=== PATIENT | female | born 1995 | race African-American/Black ===

== ENCOUNTER 2025-02-05 21:07 | Emergency (ER) | payer BC, SELFPAY ==
[2025-02-05] VITALS (7 sets, daily range): BP systolic 113–125; BP diastolic 66–105; PULSE 79–88; RESP 16–20; TEMP 36.7; O2SAT 98–100
--- NOTE | ~2025-02-05 | XR_ITS ---
Examination: XR chest 1V portable Clinical History: sob Comparison: None Technique: Portable AP Findings: Heart size normal. Lungs clear. No acute bony abnormality. IMPRESSION: 1. No acute cardiopulmonary findings given portable technique. Reviewed, dictated and finalized at location R. NTOLOGICAL PHYSIOTHERAPIST
--- OUTSIDE RECORDS SUMMARY | 2025-02-05 21:09 | XMS_ITS | Clinical Summary ---
Author Organization [facility] Address [address] [place] [address] Care Team Providers Care Captain Waiter/Waitress Name Role Phone Howie Andrade MD Primary Care Provider [phone] Allergies Active Allergy Reactions Criticality Noted Date Comments Nuts Anaphylaxis High 11/14/2020 Medications VITAMINS 28-0.8 MG tablet Take 1 tablet by mouth daily. 08/21/2023 Active valACYclovir (VALTREX) 500 MG tablet Take 1 tablet (500 mg total) by mouth 2 (two) times daily. 11/06/2023 Active Active Problems Problem Noted Date Diagnosed Date (spontaneous vaginal delivery) 11/19/2023 Nausea and vomiting during 11/11/2023 Comments Yes Resolved Problems Problem Noted Date Diagnosed Date Resolved Date 11/17/2023 11/20/2023 Encounters Date Type Department Care Team Description 11/19/2024 11:14 AM CDT - 11/19/2024 2:04 PM CDT Emergency [facility] [place] [address] Joan Toribio MD Dale, Maurice D, DO Abdominal Pain (7.5 weeks) Discharge Disposition: Left Against Medical Advice 11/19/2024 Travel from Last 3 Months Family History Relation Status Comments Father Alive Mother Alive Social History Tobacco Use Types Packs/Day Years Used Date Smoking Tobacco: Never Smokeless Tobacco: Never Tobacco Cessation:Counseling Given: Not Answered Alcohol Use Standard Drinks/Week Comments Not Currently 0 (1 standard drink = 0.6 oz pur e alcohol) social [id number] Health Literacy Answer Date Recor ded How often do you need to hav e someone help you when you read instructions, pamphlets, or other written material from your doctor or pharmacy? Never 11/17/2023 [facility] Utilities Answer Date Recorded In the past 12 months has th e electric, gas, oil, or water company threatened to shut off services in your home? No 11/17/2023 Humiliation, Afraid, Rape, and Kick questionnair e Answer Date Recorded Within the last year, have y ou been afraid of your partner or ex-partner? No 11/17/2023 Within the last year, have y ou been humiliated or emotionally abused in other ways by your partner or ex-partner? No Within the last year, have y ou been kicked, hit, slapped, or otherwise physically hurt by your partner or ex-partner? No 11/17/2023 Within the last year, have y ou been raped or forced to have any kind of sexual activity by your partner or ex-partner? No 11/17/2023 Social Connection and Isolation Panel Answer Date Recorded In a typical week, how many times do you talk on the phone with family, friends, or neighbors? More than three times a week 11/17/2023 How often do you get togethe r with friends or relatives? Never 11/17/2023 How often do you attend chur or druze services? Never 11/17/2023 Do you belong to any clubs o r organizations such as voodoo groups, unions, fraternal or athletic groups, or school groups? No 11/17/2023 How often do you attend meet ings of the clubs or organizations you belong to? Never 11/17/2023 Are you , , di vorced, , never , or living with a partner? Never 11/17/2023 AUDIT-C Answer Date Recorded Q1: How often do you have a drink containing alcohol? Never 11/17/2023 Q2: How many drinks containi ng alcohol do you have on a typical day when you are drinking? Patient does not drink Q3: How often do you have si x or more drinks on one occasion? Never 11/17/2023 Overall Financial Resource Strain (CARDIA) Answe r Date Recorded How hard is it for you to pa y for the very basics like food, housing, medical care, and heating? Not very hard 11/17/2023 PHQ-2 Answer Date Recorded Patient Health Questionnaire-2 Score 0 11/17/2023 [facility] [place] of Occupat ional Health - Occupational Stress Questionnaire Answer Date Recorded Do you feel stress - tense, restless, nervous, or anxious, or unable to sleep at night because your mind is troubled all the time - these days? To some extent 11/17/2023 Exercise Vital Sign Answer Date Recorde d On average, how many days pe r week do you engage in moderate to strenuous exercise (like a brisk walk)? 0 days 11/17/2023 On average, how many minutes do you engage in exercise at this level? 0 min 11/17/2023 Hunger Vital Sign Answer Date Recorded Within the past 12 months, y ou worried that your food would run out before you got the money to buy more. Never true 11/17/19 24 Within the past 12 months, t he food you bought just didn't last and you didn't have money to get more. Never true 11/17/2023 PRAPARE - Transportation Answer Date Re corded In the past 12 months, has l ack of transportation kept you from medical appointments or from getting medications? No 04/2023 In the past 12 months, has l ack of transportation kept you from meetings, work, or from getting things needed for daily living? No 11/17/2023 Housing Stability Vital Sign Answer Evgeny e Recorded In the last 12 months, was t here a time when you were not able to pay the mortgage or rent on time? No 11/17/2023 In the past 12 months, how m any times have you moved where you were living? 1 11/17/2023 At any time in the past 12 m [facility], were you homeless or living in a fci (including now)? No 11/17/2023 Depression Answer Date Recor ded Last EPDS Total Score 5 11/20/2023 Last EPDS Self Harm Result Unrecognized value Comments Yes Sex and Gender Information Value Date Recorded Sex Assigned at Female 11/19/2024 10:55 AM CDT Legal Sex Female 2:25 PM CDT Gender Identity Not on file Sexual Orientation Not on file Last Filed Vital Signs Vital Sign Reading Time Taken Comments Blood Pressure 119/65 11/19/2024 1:33 PM CDT Pulse 92 11/19/2024 1:33 PM CDT Temperature 36.4 C (97.5 F) 11/19/2024 1:33 PM CDT Respiratory Rate 18 11/19/2024 1:33 PM CDT Oxygen Saturation 98% 11/19/2024 1:33 PM CDT Inhaled Oxygen Concentration - - Weight 99.1 kg (218 lb 7.6 oz) 11/19/2024 10:52 AM CDT Height 172.7 cm (5' 8) 11/19/2024 10:52 AM CDT Body Mass Index 33.22 11/19/2024 10:52 AM CDT Plan of Treatment Health Maintenance Due Date Last Done Comments Annual Physical 10/23/1999 Hepatitis C 2014 Hepatitis B Vaccines (1 of 3 - 19+ 3-dose series) 10/23/2015 HPV Vaccines (1 - 3-dose SCDM series) 10/23/2023 Cervical Cancer Screening Pap Smear (Age 21 to 29) Every 3 Years 10/25/2023 10/24/2020 Cervical Cancer Screening 10/25/2023 COVID-19 Vaccine ( season) 2024 Influenza Adult (#1) 2024 01/30/2017 DTaP, Tdap and Td Vaccines (7 - Td or Tdap) 01/30/2027 01/30/2017, 11/02/2010, 01/16/2001, Additional history exists RSV Immunization or 60+ Years (1 - 1-dose 75+ series) 10/23/2071 Meningococcal Vaccine Completed 10/08/2014 Hepatitis A Vaccines Aged Out No long er eligible based on patient's age to complete this topic Meningococcal B Vaccine Aged Out No l onger eligible based on patient's age to complete this topic Pneumococcal Vaccine: Pediatrics (0 to 5 Years) and At-Risk Patients (6 to 49 Years) Aged Out No longer eligible based on patient's age to complete this topic RSV Immunizations Under 20 Months Aged Out No longer eligible based on patient's age to complete this topic Procedures Procedure Name Priority Date/Time Associated Diagnosis Comments US OB TRANSVAG STAT 11/19/2024 1:17 PM CDT ECG 12-LEAD STAT 11/19/2024 11:37 AM CDT HC URINALYSIS AUTO W/O MICRO STAT 11/19/2024 11:25 AM CDT HC HCG QN STAT 11/19/2024 11:25 AM CDT HC LIPASE STAT 11/19/2024 11:25 AM CDT HC COMPREHENSIVE METABOLIC PANEL STAT 11/19/2024 11:25 AM CDT HC CBC AUTO W/AUTO DIFF STAT 11/19/2024 11:25 AM CDT POCT URINE (BACK OFFICE) STAT 11/19/2024 11:24 AM CDT from Last 3 Months Results * US OB TRANSVAG (11/19/2024 1:17 PM CDT) Anatomical Region Laterality Modality Abdomen, Pelvis Ultrasound 11/19/2024 1:29 PM CDT Impressions 11/19/2024 2:12 PM CDT =====IMPRESSION:===== 1. Single viable intrauterine gestation with positive cardiac activity seen. . Estimated gestational age is 7 weeks 4 days +/- 4 days. with an estimated date of confinement of 07/04/2025. 2. Area of hemorrhage adjacent to gestational sac suspected measuring 2.4 cm. 3. Prominent pelvic vasculature. 4. Nonvisualization the ovaries. Ordered By: JOAN TORIBIO Interpreted By: Chip Elkins MD, 11/19/2024 1:29 PM Narrative 11/19/2024 2:12 PM CDT [facility] [place] [address] EXAMINATION: OB ultrasound with transvaginal imaging EXAM DATE/TIME: 11/19/2024 12:52 PM REASON FOR EXAM: pelvic pain COMPARISON: None TECHNIQUE: Transvaginal ultrasound evaluation of the pelvic contents was performed for analysis of grayscale and color Doppler imaging characteristics. FINDINGS: Single intrauterine gestation is noted. . heart rate is 153 beats per minute. Yolk sac is visualized. mean crown-rump length is 1.34 centimeters. This projects to a gestational age of 7 weeks 4 days +/- 4 days.. Estimated date of confinement is 07/04/2025 . Hemorrhage adjacent to gestational sac suspected. This measures 2.4 x 0.5 x 1.24 cm. The ovaries are not Visualized bilaterally. Prominent vasculature in the pelvis is noted. Procedure Note Chip Elkins MD - 11/19/[address] [address] EXAMINATION: OB ultrasound with transvaginal imaging EXAM DATE/TIME: 11/19/2024 12:52 PM REASON FOR EXAM: pelvic pain COMPARISON: None TECHNIQUE: Transvaginal ultrasound evaluation of the pelvic contents wasperformed for analysis of grayscale and color Doppler imagingcharacteristics. FINDINGS: Single intrauterine gestation is noted. . heart rate is153 beats per minute. Yolk sac is visualized. mean crown-rump length is1.34 centimeters. This projects to a gestational age of 7 weeks 4 days +/-4 days.. Estimated date of confinement is 07/04/2025 . Hemorrhageadjacent to gestational sac suspected. This measures 2.4 x 0.5 x 1.24 cm.The ovaries are not Visualized bilaterally. Prominent vasculature in thepelvis is noted. =====IMPRESSION:===== 1. Single viable intrauterine gestation with positive cardiacactivity seen. . Estimated gestational age is 7 weeks 4 days +/- 4 days.with an estimated date of confinement of 07/04/2025. 2. Area of hemorrhage adjacent to gestational sac suspected measuring 2.4cm. 3. Prominent pelvic vasculature. 4. Nonvisualization the ovaries. Ordered By: JOAN TORIBIO Interpreted By: Chip Elkins MD, 11/19/2024 1:29 PM us Joan Toribio MD ULTRASOUND Final Result * ECG 12 lead (11/19/2024 11:37 AM CDT) 11/19/2024 11:3 7 AM CDT Narrative [facility] ([facility] RAD - 11/19/2024 8:49 PM CDT [facility] Test Date: 2024-11-19 Pat Name: HERMINIO URBINALAN Department: 41 Room: SANTY Gender: Female Clinical Microbiologist: [id number] : 1995 Requested By: LAINE ROPER Order Number: [id number] Reading MD: Sharad Albright Measurements Intervals [employer] Rate: 89 P: 37 DE: 138 QRS: 15 QRSD: 86 T: 27 QT: 349 QTc: 426 Interpretive Statements SINUS RHYTHM MODERATE VOLTAGE CRITERIA FOR LVH, CONSIDER NORMAL VARIANT [MEETS CRITERIA IN ONE OF: R(aVL), S(V1), R(V5), R(V5/V6)+S(V1)] NONSPECIFIC T-WAVE ABNORMALITY No previous ECG available for comparison Procedure Note Sharad Albright MD - 11/19/[address] [facility] [facility] Test Date: 2024-11-19 Pat Name: HERMINIO SCHROEDER Department: 41 Room: SANTY Gender: Female Clinical Microbiologist: [id number] : 1995 Requested By: LAINE ROPER Order Number: [id number] Willie Albright Measurements Intervals [employer] Rate: 89 P: 37 DE: 138 QRS: 15 QRSD: 86 T: 27 QT: 349 QTc: 426 Interpretive Statements SINUS RHYTHM MODERATE VOLTAGE CRITERIA FOR LVH, CONSIDER NORMAL VARIANT [MEETSCRITERIA IN ONE OF: R(aVL), S(V1), R(V5), R(V5/V6)+S(V1)] NONSPECIFIC T-WAVE ABNORMALITY No previous ECG available for comparison us Laine BOYLE ECG ORDERABLES Final Result [facility] RAD * (ABNORMAL) URINALYSIS (11/19/2024 11:25 AM CDT) SPECIMEN TYPE URINE CLEAN CATCH 11/19/2024 11:26 AM CDT [facility] COLOR (U) YELLOW 11/19/2024 11:53 AM CDT [facility] TRANSPARENCY CLEAR 11/19/2024 11:53 AM CDT [facility] SPECIFIC GRAVITY (U) 1.027 1.001 - 1.030 11/19/2024 11:53 AM CDT [facility] U PH 6.0 5.0 - 9.0 11/19/2024 11:53 AM CDT [facility] LEUKOCYTES (U) 75(A) NEGATIVE 11/19/2024 11:53 AM CDT [facility] NITRITES NEGATIVE NEGATIVE 11/19/2024 11:53 AM CDT [facility] PROTEIN RANDOM (U) 10 <30 MG/DL 11/19/2024 11:53 AM CDT [facility] GLUCOSE (U) NORMAL NORMAL MG/DL 11/19/2024 11:53 AM CDT [facility] KETONES MG/DL (U) 20(A) NEGATIVE MG/DL 11/19/2024 11:53 AM CDT [facility] UROBILINOGEN NORMAL NORMAL MG/DL 11/19/2024 11:53 AM CDT [facility] BILIRUBIN (U) NEGATIVE NEGATIVE MG/DL 11/19/2024 11:53 AM CDT [facility] BLOOD (U) NEGATIVE NEGATIVE 11/19/2024 11:53 AM CDT [facility] MUCUS MODERATE /LPF 11/19/2024 11:53 AM CDT [facility] HYALINE CASTS RARE /LPF 11/19/2024 11:53 AM CDT [facility] WBC/HPF 4 <6 /HPF 11/19/2024 11:53 AM CDT [facility] RBC/HPF 2 <6 /HPF 11/19/2024 11:53 AM CDT [facility] SQUAMOUS EPITHELIALS RARE /HPF 11/19/2024 11:53 AM CDT [facility] URINE SPECIMEN OBTAINED BY CLEAN CATCH PROCEDURE / Unknown 11/19/2024 11:25 AM CDT us Laine BOYLE URINE ORDERABLES Final Result [facility] [address] [place] [address], [place] [phone] * (ABNORMAL) COMPREHENSIVE METABOLIC PANEL (11/19/2024 11:25 AM CDT) GLUCOSE 101(H) 70 - 99 MG/DL 11/19/2024 2:03 PM CDT [facility] BUN 7 7 - 18 MG/DL 11/19/2024 2:03 PM CDT [facility] CREATININE S/P/B 0.82 0.55 - 1.02 MG/DL 11/19/2024 2:03 PM CDT [facility] SODIUM S/P/B 137 136 - 145 MMOL/L 11/19/2024 2:03 PM CDT [facility] POTASSIUM S/P/B 3.5 3.5 - 5.1 MMOL/L 11/19/2024 2:03 PM CDT [facility] CHLORIDE S/P/B 106 97 - 115 MMOL/L 11/19/2024 2:03 PM CDT [facility] CO2 23.7 21 - 32 MMOL/L 11/19/2024 2:03 PM CDT [facility] CALCIUM S/P/B 9.9 8.5 - 10.1 MG/DL 11/19/2024 2:03 PM CDT [facility] BILIRUBIN TOTAL S/P/B 0.3 0.2 - 1.2 MG/DL 11/19/2024 2:03 PM CDT [facility] Comment: THIS ASSAY IS NOT RECOMMENDED FOR PATIENTS UNDERGOING TREATMENT WITH ELTROMBOPAG DUE TO THE POTENTIAL FOR FALSELY ELEVATED RESULTS. TOTAL PROTEIN S/P/B 8.0 6.4 - 8.2 G/DL 11/19/2024 2:03 PM CDT [facility] ALBUMIN S/P/B 3.8 3.4 - 5.0 G/DL 11/19/2024 2:03 PM CDT [facility] AST 15 15 - 37 U/L 11/19/2024 2:03 PM CDT [facility] ALT 21 14 - 55 U/L 11/19/2024 2:03 PM CDT [facility] ALKALINE PHOSPHATASE S/P/B 72 50 - 136 U/L 11/19/2024 2:03 PM CDT [facility] ANION GAP 7.3 2 - 10 MMOL/L 11/19/2024 2:03 PM CDT [facility] BUN CREATININE RATIO 8.5 6 - 26 11/19/2024 2:03 PM CDT [facility] A/G RATIO 0.9(L) 1.0 - 2.0 RATIO 11/19/2024 2:03 PM CDT [facility] GFR ESTIMATE >90 >90 ML/MIN/1.7 3 M2 11/19/2024 2:03 PM CDT [facility] Comment: NOTE: eGFR is not calculated for patients <18 years of age or gender unknown. This is an estimated GFR calculation using the new CKD EPI creatinine equation without race and so does not require a correction factor for race. This estimated GFR should not be used for calculating drug doses. 11/19/2024 11:2 5 AM CDT [facility] BO[facility] LABORATORY Final Result [facility] [address] [place] [address], [place] [phone] * HCG QUANT (SERUM)-CHORIONIC GONADOTROPIN (11/19/2024 11:25 AM CDT) HCG QUANTITATIVE 40,336 MIU/ML 11/20/19 12:38 PM CDT [facility] Comment: WEEKS OF REFERENCE RANGES Non- female < or = 2 0.2 - 1 5 - 50 1 - 2 50 - 500 2 - 3 100 - 5000 3 - 4 500 - 10,000 4 - 5 1000 - 50,000 5 - 6 10,000 - 100,000 6 - 8 15,000 - 200,000 2 - 3 MONTHS 10,000 - 100,000 11/19/2024 11:2 5 AM CDT [facility]ORAT[facility] Final Result [facility] [address] [place] [address], * CBC W/DIFF AUTOMATED (11/19/2024 11:25 AM CDT) [facility] Signature WBC 7.19 4.5 - 11.0 x10'3/uL 11/19/2024 12:02 PM CDT [facility] RBC 4.87 4.20 - 5.40 x10'6/uL 11/19/2024 12:02 PM CDT [facility] HGB 13.9 12.0 - 16.0 G/DL 11/19/2024 12:02 PM CDT [facility] HCT 40.8 38.0 - 48.0 % 11/19/2024 12:02 PM CDT [facility] MCV 83.8 81.0 - 99.0 FL 11/19/2024 12:02 PM CDT [facility] MCH 28.5 27.0 - 31.0 PG 11/19/2024 12:02 PM CDT [facility] MCHC 34.1 32.0 - 36.0 G/DL 11/19/2024 12:02 PM CDT [facility] RDW 13.5 11.5 - 14.5 % 11/19/2024 12:02 PM CDT [facility] PLT 251 130 - 400 x10'3/uL 11/19/2024 12:02 PM CDT [facility] MPV 12.0 9.3 - 12.2 FL 11/19/2024 12:02 PM CDT [facility] DIFFERENTIAL TYPE AUTOMATED DIFFERENTIAL 11/19/2024 12:02 PM CDT [facility] NEUTROPHILS % 62.4 % 11/19/2024 12:02 PM CDT [facility] LYMPHOCYTES % 28.4 % 11/19/2024 12:02 PM CDT [facility] MONOCYTES % 6.7 % 11/19/2024 12:02 PM CDT [facility] EOSINOPHILS 1.8 % 11/19/2024 12:02 PM CDT [facility] BASOPHILS 0.3 % 11/19/2024 12:02 PM CDT [facility] IMMATURE GRANS % 0.4 % 11/20/19 12:02 PM CDT [facility] ABS. NEUTROPHILS 4.49 1.80 - 7.70 x10'3/uL 11/19/2024 12:02 PM CDT [facility] ABS. LYMPHOCYTES 2.04 1.00 - 4.80 x10'3/uL 11/19/2024 12:02 PM CDT [facility] ABS. MONOCYTES 0.48 0.24 - 0.86 x10'3/uL 11/19/2024 12:02 PM CDT [facility] ABS. EOSINOPHILS 0.13 0.04 - 0.36 x10'3/uL 11/19/2024 12:02 PM CDT [facility] ABS. BASOPHILS 0.02 0.01 - 0.08 x10'3/uL 11/19/2024 12:02 PM CDT [facility] ABS. IMMATURE GRANULOCYTES 0.03 0.00 - 0.49 x10'3/uL 11/19/2024 12:02 PM CDT [facility] 11/19/2024 11:2 5 AM CDT us Laine BOYLE LABORATORY Final Result [facility] [address] [place] [address], [place] [phone] * LIPASE (11/19/2024 11:25 AM CDT) LIPASE 39 13 - 75 UNITS/L 11/19/2024 2:03 PM CDT [facility] 11/19/2024 11:2 5 AM CDT [facility] Final Result [facility] [address] [place] [address], [place] [phone] * (ABNORMAL) POCT urine (11/19/2024 11:24 AM CDT) URINE HCG TEST POSITIVE(A ) Internal Control: VALID 11/19/2024 11:2 4 AM CDT Laine BOYLE POINT OF CARE TEST ORDERABLES Final Result from Last 3 Months Insurance MEDICAID Advance Directives * Full Code (Latest Code Status on File) Date Activated Date Inactivated Comments 11/17/2023 3:31 PM 11/18/2023 6:49 PM Care Teams Captain Waiter/Waitress Relationship Specialty Start Date End Date Howie Andrade MD [address] [place] [address] PCP - General HOSPITALIST 11/11/23
--- OUTSIDE RECORDS SUMMARY | 2025-02-05 21:09 | XMS_ITS | Data Portability ---
Author Organization [facility] Address [address] [place] [address] Care Team Providers Care Inspector Automatic Typewriter Name Role Phone [facility] Community Health Advocate Assessment No assessment recorded. Plan of Treatment Reminders Order Date Submit Date Provider Last Modified By Organization Details Last Modified Time Details Appointments None recorded. Lab test, urine 2024 025 [facility], [address] [place], [address], 5 13:39:28 Referral None recorded. Procedures None recorded. Surgeries None recorded. Imaging US, transvagina l 2024 025 [facility], [address] [place], [address], 5 15:53:45 non-stress test 2023 024 [email or web address] [facility], [address] [place], [address], 4 17:34:45 US, obstetric, follow-up 2023 024 [facility], [address] [place], [address], 4 10:23:09 Medication Orders ondansetron 4 mg disintegrat ing tablet 2024 025 [facility]25, [address] [facility], [place], [address], 5 13:41:43 Reglan 10 mg tablet 2024 025 [facility] [address]25, [address] [facility], [place], [address], 5 13:41:45 Vitamin B-6 50 mg tablet 2024 025 [facility] [address]25, [address] , [place], [address], 5 13:41:44 norethindro ne (contracept jennifer) 0.35 mg tablet 2023 025 [facility], [address] [place], [place], [id number], 5 13:01:54 valacyclovi r 500 mg tablet [email or web address] [facility] #[id number], [address], [place], [id number], 5 13:02:07 Patient TargetsNo targets recorded. Patient Instructions Encounter Date Encounter Id Patient Instructions Last Modified By Organization Details Last Modified Time 11/06/2023 [id number] 3rd Trimester Warning Signs: Call our office or go to labor and delivery for any the following: Blurring of vision or spots before your eyes and/or BURNS Ruptured membranes or leakage of vaginal fluid -may be a steady trickle or large gush - may be clear, yellow, pink or green Decreased movement--if your baby has stopped moving or is moving less than it normally does. Vaginal bleeding--bright red bleeding and/or clots need medical care immediately. Any temperature above 100 degrees. Any burning or painful urination. Increased swelling in your face, hands, or feet. Stomach pains, cramps, nausea, or diarrhea. [email or web address] Not available 11/04/2023 19:34:02 12/15/2023 [id number] depression after childbirth: care instructions Not available 12/15/2023 14:47:55 Care at Home With Your Baby: Care Instructions Not available 12/15/2023 14:47:55 control after counseling Not available 12/15/2023 14:47:55 depression after childbirth: care instructions Not available 12/15/2023 14:47:55 Care at Home With Your Baby: Care Instructions Not available 12/15/2023 14:47:55 control after counseling Not available 12/15/2023 14:47:55 * The first 2 weeks after - eat a healthy diet with fruits, vegetables and lean protein - continue light activity & can start light exercise such as walking - Sexual activity - no vaginal penetration, no tampons until 6 weeks PP - Continue vitamins -- Perineal care - use witch precious & dermaplast as needed; add silvadene cream to speed healing process * Symptoms of depression - Feeling sad or hopeless and losing interest in daily activities. These are the most common symptoms of depression. - Sleeping too much or not enough. - Feeling tired. You may feel as if you have no energy. - Eating too much or too little. - Writing or talking about * SAFE SLEEPING INSTRUCTIONS - avoid back sleep, co-sleeping - maintain cool environment - no blankets or other objects in crib that could present hazard to infant. [email or web address] Not available 12/01/2023 17:48:20 12/29/2023 [id number] depression after childbirth: care instructions Not available 12/29/2023 10:55:36 Care at Home With Your Baby: Care Instructions Not available 12/29/2023 10:55:36 control after counseling Not available 12/29/2023 10:55:36 Reason for Referral None Reported. Results Created Date Observation Date Name Description Value Unit Range Abnormal Flag Note LastModifiedBy Organization Detail LastModifiedTime 10/02/19 24 10/03/2023 CBC (INCL UDES DIFF/ PLT) WBC 9.2 thous and/u L 4.0 - 9.8 normal Not Available [address], [address], 10/03/2023 11:31:22 10/02/19 24 10/03/2023 CBC (INCL UDES DIFF/ PLT) RBC 4.0 roopa on/uL 3.9 - 4.9 normal Not Available [address], [address], 10/03/2023 11:31:22 10/02/19 24 10/03/2023 CBC (INCL UDES DIFF/ PLT) hemoglobin 11.3 g/dL 11.8 - 14.8 low Not Available [address], [address], 10/03/2023 11:31:22 10/02/19 24 10/03/2023 CBC (INCL UDES DIFF/ PLT) hematocrit 33.9 % 35.5 - 44.0 low Not Available [address], [address], 10/03/2023 11:31:22 10/02/19 24 10/03/2023 CBC (INCL UDES DIFF/ PLT) MCV 85.6 fL 82.0 - 99.0 normal Not Available [address], [address], 10/03/2023 11:31:22 10/02/19 24 10/03/2023 CBC (INCL UDES DIFF/ PLT) MCH 28.5 pg 27.2 - 32.6 normal Not Available [address], [address], 10/03/2023 11:31:22 10/02/19 24 10/03/2023 CBC (INCL UDES DIFF/ PLT) MCHC 33.3 g/dL 31.5 - 35.5 normal Not Available [facility] [address] [place] [address], [address], 10/03/2023 11:31:22 10/02/19 24 10/03/2023 CBC (INCL UDES DIFF/ PLT) RDW-CV 13.8 % 11.5 - 14.5 normal Not Available [address], [address], 10/03/2023 11:31:22 10/02/19 24 10/03/2023 CBC (INCL UDES DIFF/ PLT) platelet 177 thous and/u L 140 - 350 normal Not Available [address], [address], 10/03/2023 11:31:22 10/02/19 24 10/03/2023 CBC (INCL UDES DIFF/ PLT) MPV 12.7 fL 9.3 - 12.4 high Not Available [address], [address], 10/03/2023 11:31:22 10/02/19 24 10/03/2023 CBC (INCL UDES DIFF/ PLT) absolute neutrophil 5.98 thous and/u L 1.90 - 7.00 normal Not Available [address], [address], 10/03/2023 11:31:22 10/02/19 24 10/03/2023 CBC (INCL UDES DIFF/ PLT) absolute lymphocyte 2.10 thous and/u L 0.70 - 4.50 normal Not Available [address], [address], 10/03/2023 11:31:22 10/02/19 24 10/03/2023 CBC (INCL UDES DIFF/ PLT) absolute monocyte 0.69 thous and/u L 0.10 - 1.30 normal Not Available [address], [address], 10/03/2023 11:31:22 10/02/19 24 10/03/2023 CBC (INCL UDES DIFF/ PLT) absolute eosinophil 0.25 thous and/u L <0.70 normal Not Available [address], [address], 10/03/2023 11:31:22 10/02/19 24 10/03/2023 CBC (INCL UDES DIFF/ PLT) absolute basophil 0.06 thous and/u L <0.20 normal Not Available [address], [address], 10/03/2023 11:31:22 10/02/19 24 10/03/2023 CBC (INCL UDES DIFF/ PLT) absolute immature granulocyte 0.16 thous and/u L <0.03 high Not Available [address], [address], 10/03/2023 11:31:22 10/02/19 24 10/03/2023 OB 28W (SYPH HIV 1/2 Ag/Ab Non-Re active non-re active normal Not Available [address], [address], 10/03/2023 13:14:54 10/02/19 24 10/03/2023 OB 28W (SYPH syphilis Ab Non-Re active non-re active normal Not Available [address], [address], 10/03/2023 13:14:54 11/17/19 24 11/18/2023 CREAT ININE , URINE creatinine, urine 170.0 mg/dL 28- Not Available [facility] (Lab) [place], [address], 11/18/2023 01:53:17 11/17/19 24 11/18/2023 TOTAL PROTE IN, URINE total protein, urine 19.2 mg/dL <10 high Not Available [facility] (Lab) [place], [address], 11/18/2023 01:53:19 11/18/19 24 11/18/2023 COMPR EHENS JENNIFER METAB OLIC PANEL glucose 127 mg/dL 70-99 high Not Available [facility] (Lab) [place], [address], 11/18/2023 06:44:24 11/18/1911/18/2023 COMPR EHENS JENNIFER METAB OLIC PANEL BUN 7 mg/dL 7-18 Not Available [facility] (Lab) [place], [address], 11/18/2023 06:44:24 11/18/1911/18/2023 COMPR EHENS JENNIFER METAB OLIC PANEL creatinine 0.58 mg/dL 0.55-1 .02 Not Available [facility] (Lab) [place], [address], 11/18/2023 06:44:24 11/18/19 24 11/18/2023 COMPR EHENS JENNIFER METAB OLIC PANEL sodium 137 mmol/ L 136-14 5 Not Available [facility] (Lab) [place], [address], 11/18/2023 06:44:24 11/18/1911/18/2023 COMPR EHENS JENNIFER METAB OLIC PANEL potassium 3.6 mmol/ L 3.5-5. 1 Not Available [facility] (Lab) [place], [address], 11/18/2023 06:44:24 11/18/1911/18/2023 COMPR EHENS JENNIFER METAB OLIC PANEL chloride 109 mmol/ L 97-115 Not Available [facility] (Lab) [place], [address], 11/18/2023 06:44:24 11/18/19 24 11/18/2023 COMPR EHENS JENNIFER METAB OLIC PANEL total CO2 21.6 mmol/ L 21-32 Not Available [facility] (Lab) [address] [facility] [place], [address], 11/18/2023 06:44:24 11/18/19 24 11/18/2023 COMPR EHENS JENNIFER METAB OLIC PANEL calcium 9.2 mg/dL 8.5-10 .1 Not Available [facility] (Lab) [address] [facility], [place], [address], 11/18/2023 06:44:24 11/18/1911/18/2023 COMPR EHENS JENNIFER METAB OLIC PANEL total bilirubin 0.8 mg/dL 0.2-1. 2 THIS ASSAY IS NOT RECOM NOA D FOR PATIE NTS UNDER GOING TREAT MENT WITH ELTRO MBOPA G DUE TO THE POTEN TIAL FOR FALSE LY ELEVA FARRAH RESUL TS. Not Available [facility] (Lab) [address] [facility], [place], [address], 11/18/2023 06:44:24 11/18/1911/18/2023 COMPR EHENS JENNIFER METAB OLIC PANEL total protein 6.7 g/dL 6.4-8. 2 Not Available [facility] (Lab) [place], [address], 11/18/2023 06:44:24 11/18/1911/18/2023 COMPR EHENS JENNIFER METAB OLIC PANEL albumin 2.5 g/dL 3.4-5. 0 low Not Available [facility] (Lab) [place], [address], 11/18/2023 06:44:24 11/18/19 24 11/18/2023 COMPR EHENS JENNIFER METAB OLIC PANEL AST 13 U/L 15-37 low Not Available [facility] (Lab) [place], [address], 11/18/2023 06:44:24 11/18/19 24 11/18/2023 COMPR EHENS JENNIFER METAB OLIC PANEL ALT 18 U/L 14-55 Not Available [facility] (Lab) [address] [facility], [place], [address], 11/18/2023 06:44:24 11/18/19 24 11/18/2023 COMPR EHENS JENNIFER METAB OLIC PANEL alk phosphatase 124 U/L 50-136 Not Available [facility] (Lab) [address] [facility], [place], [address], 11/18/2023 06:44:24 11/18/19 24 11/18/2023 COMPR EHENS JENNIFER METAB OLIC PANEL anion gap 6.4 mmol/ L 2-10 Not Available [facility] (Lab) [place], [address], 11/18/2023 06:44:24 11/18/19 24 11/18/2023 COMPR EHENS JENNIFER METAB OLIC PANEL BUN creatinine ratio 12.0 6-26 Not Available [facility] (Lab) [place], [address], 11/18/2023 06:44:24 11/18/19 24 11/18/2023 COMPR EHENS JENNIFER METAB OLIC PANEL A:g ratio 0.6 ratio 1.0-2. 0 low Not Available [facility] (Lab) [place], [address], 11/18/2023 06:44:24 11/18/19 24 11/18/2023 COMPR EHENS JENNIFER METAB OLIC PANEL est GFR >90 mL/mi n/1.7 3_M2 >90 NOTE: eGFR is not calcu lated for patie nts <18 years of age or gende r unkno wn. This is an estim ated GFR calcu latio n using the new CKD EPI creat inine equat ion witho ut race and so does not requi re a corre ction facto r for race. This estim ated GFR shoul d not be used for calcu latin g drug doses . Not Available [facility] (Lab) [address], [place], [address], 11/18/2023 06:44:24 11/19/1911/19/2023 CBC WITH DIFF WBC 9.45 x10'3 /uL 4.5-11 .0 Not Available [facility] (Lab) [place], [address], 11/19/2023 07:25:08 11/19/19 24 11/19/2023 CBC WITH DIFF RBC 4.20 x10'6 /uL 4.20-5 .40 Not Available [facility] (Lab) [address], [place], [address], 11/19/2023 07:25:08 11/19/19 24 11/19/2023 CBC WITH DIFF hemoglobin 11.8 g/dL 12.0-1 6.0 low Not Available [facility] (Lab) [place], [address], 11/19/2023 07:25:08 11/19/19 24 11/19/2023 CBC WITH DIFF hematocrit 35.9 % 38.0-4 8.0 low Not Available [facility] (Lab) [place], [address], 11/19/2023 07:25:08 11/19/19 24 11/19/2023 CBC WITH DIFF MCV 85.5 fL 81.0-9 9.0 Not Available [facility] (Lab) [place], [address], 11/19/2023 07:25:08 11/19/19 24 11/19/2023 CBC WITH DIFF MCH 28.1 pg 27.0-3 1.0 Not Available [facility] (Lab) [address] [facility], [place], [address], 11/19/2023 07:25:08 11/19/19 24 11/19/2023 CBC WITH DIFF MCHC 32.9 g/dL 32.0-3 6.0 Not Available [facility] (Lab) [address] [facility], [place], [address], 11/19/2023 07:25:08 11/19/19 24 11/19/2023 CBC WITH DIFF RDW 14.6 % 11.5-1 4.5 high Not Available [facility] (Lab) [place], [address], 11/19/2023 07:25:08 11/19/19 24 11/19/2023 CBC WITH DIFF platelet count 128 x10'3 /uL 130-40 0 low Not Available [facility] (Lab) [place], [address], 11/19/2023 07:25:08 11/19/19 24 11/19/2023 CBC WITH DIFF MPV 13.0 fL 9.3-12 .2 high Not Available [facility] (Lab) [place], [address], 11/19/2023 07:25:08 11/19/19 24 11/19/2023 CBC WITH DIFF diff type AUTOMA FARRAH DIFFER ENTIAL Not Available [facility] (Lab) [address], [place], [address], 11/19/2023 07:25:08 11/19/19 24 11/19/2023 CBC WITH DIFF neutrophils 69.6 % Not Available [facility] (Lab) [address], [place], [address], 11/19/2023 07:25:08 11/19/19 24 11/19/2023 CBC WITH DIFF lymphocytes 18.2 % Not Available [facility] (Lab) [address], [place], [address], 11/19/2023 07:25:08 11/19/19 24 11/19/2023 CBC WITH DIFF monocytes 9.8 % Not Available [facility] (Lab) [address] [place], [address], 11/19/2023 07:25:08 11/19/19 24 11/19/2023 CBC WITH DIFF eosinophils 1.5 % Not Available [facility] (Lab) [address] [place], [address], 11/19/2023 07:25:08 11/19/19 24 11/19/2023 CBC WITH DIFF basophils 0.3 % Not Available [facility] (Lab) [address], [place], [address], 11/19/2023 07:25:08 11/19/19 24 11/19/2023 CBC WITH DIFF immature granulocytes 0.6 % Not Available [facility] (Lab) [address], [place], [address], 11/19/2023 07:25:08 11/19/19 24 11/19/2023 CBC WITH DIFF abs. neutrophils 6.57 x10'3 /uL 1.80-7 .70 Not Available [facility] (Lab) [place], [address], 11/19/2023 07:25:08 11/19/19 24 11/19/2023 CBC WITH DIFF abs. lymphocytes 1.72 x10'3 /uL 1.00-4 .80 Not Available [facility] (Lab) [address] [facility], [place], [address], 11/19/2023 07:25:08 11/19/19 24 11/19/2023 CBC WITH DIFF abs. monocytes 0.93 x10'3 /uL 0.24-0 .86 high Not Available [facility] (Lab) [address] [facility], [place], [address], 11/19/2023 07:25:08 11/19/19 24 11/19/2023 CBC WITH DIFF abs. eosinophils 0.14 x10'3 /uL 0.04-0 .36 Not Available [facility] (Lab) [address] [facility], [place], [address], 11/19/2023 07:25:08 11/19/19 24 11/19/2023 CBC WITH DIFF abs. basophils 0.03 x10'3 /uL 0.01-0 .08 Not Available [facility] (Lab) [address] [facility], [place], [address], 11/19/2023 07:25:08 11/19/19 24 11/19/2023 CBC WITH DIFF abs. immature grans 0.06 x10'3 /uL 0.00-0 .49 Not Available [facility] (Lab) [place], [address], 11/19/2023 07:25:08 11/27/19 25 11/26/2024 pregn brice test, urine HCG positi ve Not Available [facility] [address] [place], [address], 11/25/2024 13:14:17 10/13/19 24 10/13/2023 US, obste tric, limit ed No observ ation record ed. Dee [address], [place], [address], 10/21/2023 10:54:30 10/29/19 24 10/28/2023 US, obste tric, follo w-up No observ ation record ed. [email or web address] Dee [address], [place], [address], 10/29/2023 11:13:36 11/30/19 25 11/26/2024 US, trans vagin al No observ ation record ed. [email or web address] Dee [address], [place], [address], 12/17/2024 14:54:26 Result Notes None recorded. Problems Name Problem SNOMED Code Status Onset Date Resolution Date Notes Provider Name and Address Organization Details Recorded Time Herpes simplex 26332988 Completed Type 1 & 2 in blood work-nev er had outbreak Helen Limon CNM [address] [place], [address], [facility] 4 15:58:28 Body mass index 30+ - obesity 261521479 Completed Confirma tion BMI: 34.2, 6-21-24 at [facility] had efw 43% and post plac no previa and growth at 34weeks w/[facility] Howie Andrade MD [address] [place], [address], [facility] [employer] [facility] 4 11:39:32 Group B streptoc occal pneumoni a [id number] Completed 1st child complica tions after delivery due to GBS. 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 Procedures Surgical History Date Name Laterality Status Provider Name and Address Organization Details Recorded Time 4 NST completed Althea Salas, [facility] [address] [facility], [place], [address], [facility] 11/04/2023 19:34:21 3 Date of Last Pap Smear completed Eboni Arce [facility] 12/24/2022 12:24:36 procedure on tendon completed Kamryn Barriga [facility] 01/03/2022 14:19:30 Imaging Results None recorded. Procedure Notes None recorded. Medical Equipment None Reported. Allergies Allergen ID Allergen Name Allergen Category Reaction Reaction Severity Criticality Documentation Date Start Date Code Code System Note Provider Name and Address Organization Details Recorded Time 395748 peanut allergeni c extract food,medi cation Not available Not available Not available 05/14/2023 61416 8 RxNorm Cely Gomez null, [place] - [facility] 4 16:01:30 Medications Name Sig Start Date Stop Date Status Note LastModified by Organization Details LastModified Time amoxicillin 500 mg capsule TAKE 1 CAPSULE BY MOUTH EVERY 8 HOURS FOR 10 DAYS 11/26 completed Not Available Not Available Not Available Vitamin B-6 25 mg tablet TAKE 1 TABLET BY MOUTH THREE TIMES DAILY 12/14 completed Not Available Not Available Not Available fluconazole 150 mg tablet TAKE 1 TABLET (ORAL) 1 TIME PER DAY FOR 2 DAYS TAKE 1 NOW AND 1 IN 5-7 DAYS IF SYMPTOMAT IC 01/03 completed Not Available Not Available Not Available ondansetron HCl 4 mg tablet TAKE 1 TABLET BY MOUTH EVERY 8 HOURS NEEDED FOR NAUSEA/VO MITING 01/03 completed Not Available Not Available Not Available metronidazo le 500 mg tablet TAKE 1 TABLET BY MOUTH EVERY 12 HOURS FOR 7 DAYS 04/16 completed Not Available Not Available Not Available valacyclovi r 500 mg tablet TAKE 1 TABLET BY MOUTH TWICE DAILY active PRN Not Available Not Available No t Available metoclopram owen 5 mg tablet 04/16 completed Not Available Not Available Not Available mifepriston e 200 mg tablet TAKE 1 TABLET BY MOUTH (SWALLOW) . TAKE THIS MEDICATIO N FIRST active Not Available Not Available No t Available cephalexin 500 mg capsule TAKE 1 CAPSULE BY MOUTH TWICE DAILY FOR 7 DAYS active Not Available Not Available No t Available misoprostol 200 mcg tablet PLEASE SEE ATTACHED FOR DETAILED DIRECTION S active Not Available Not Available No t Available pyridoxine (vitamin B6) 50 mg tablet TAKE 1 TABLET BY MOUTH TWICE DAILY active Not Available Not Available No t Available norethindro ne (contracept jennifer) 0.35 mg tablet Take 1 tablet every day by oral route. 11/26 completed Not Available Not Available Not Available ondansetron 4 mg disintegrat ing tablet Place 2 tablets twice a day by transling ual route as needed. 2024 active Not Available Not Available Not Avai lable Unisom (doxylamine ) 25 mg tablet Take 1/2 or 1 tablet at bedtime 12/14 completed Not Available Not Available Not Available metoclopram owen 10 mg tablet TAKE 1 TABLET BY MOUTH 4 TIMES DAILY NEEDED active Not Available Not Available No t Available 28 mg iron-800 mcg tablet TAKE 1 TABLET BY MOUTH ONCE DAILY active Not Available Not Available No t Available 28 mg-800 mcg tablet TAKE 1 TABLET BY MOUTH ONCE DAILY 11/26 completed Not Available Not Available Not Available Se-Grace 19 29 mg iron-1 mg tablet TAKE 1 TABLET BY MOUTH ONCE DAILY 11/26 completed Not Available Not Available Not Available Vitals Date Recorded Body height Body mass index (BMI) Body weight Systolic And Diastolic Provider Name and Address Organization Details Last Updated DateTime 10/28/2023 172.72 cm 38.2 kg/m2 017949.12 1818 g 120/78 mm[Hg] Maribell Donnelly [facility] [employer] 10/28/2023 14:57:03 Date Recorded Body height Body mass index (BMI) Body weight Body temperature Systolic And Diastolic Provider Name and Address Organization Details Last Updated DateTime 11/06/2023 172.72 cm 37.3 kg/m2 974502. 13 g 97 [degF] 120/70 mm[Hg] Kamryn Sharpannmarie [facility] 12:41:26 Date Recorded Body height Body mass index (BMI) Body weight Systolic And Diastolic Provider Name and Address Organization Details Last Updated DateTime 11/26/2024 172.72 cm 33.5 kg/m2 99388.32 g 118/82 mm[Hg] Leeann [facility] 11/26/2024 13:00:45 Date Recorded Body height Body mass index (BMI) Body weight Systolic And Diastolic Provider Name and Address Organization Details Last Updated DateTime 12/15/2023 172.72 cm 33.8 kg/m2 349045.5 1 g 108/72 mm[Hg] Tricia Nani [facility] [employer] [facility] IV 12/15/2023 14:31:07 Date Recorded Body height Body mass index (BMI) Body weight Body temperature Systolic And Diastolic Provider Name and Address Organization Details Last Updated DateTime 12/29/2023 172.72 cm 34.4 kg/m2 810206. 67 g 98.3 [degF] 112/60 mm[Hg] Leeann [facility] IV 10:27:09 Social History Question Answer Notes LastModified by Organizat ion Details LastModified Time Tobacco Smoking Status Never Smoker Kamryn [facility]marie [facility] [employer] [facility] IV 01/03/2022 14:19:09 Are You Blind Or Do You Have Difficulty Seeing? No Information not available 01/03/2022 Are You Deaf Or Do You Have Serious Difficulty Hearing? No Information not available 01/03/2022 What Type Of Diet Are You Following? REGULAR Information not available 01/03/2022 What Is The Highest Grade Or Level Of School You Have Completed Or The Highest Degree You Have Received? [id number] [email or web address] Information not available 05/14/2023 How Many Children Do You Have? 2 [email or web address] Information not available 12/29/2023 Are There Any Occupational Health Risks Where You Work? No [email or web address] Information not available 05/14/2023 What Is Your Relationship Status? Domestic Partner [email or web address] Information not available 05/14/2023 Are You Sexually Active? Yes Information not available 01/03/2022 Sex: Female Functional Status Question Answer Note LastModified by Organizat ion Details LastModified Time Do you use any illicit or recreational drugs? No Information not available 01/03/2022 Do you or have you ever used any other forms of tobacco or nicotine? No Information not available 01/03/2022 What is your level of alcohol consumption? None Information not available 01/03/2022 Are you currently employed? 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 Never used electronic cigarettes [email or web address] Information not available 05/14/2023 What is your exercise level? Occasional Information not available 01/03/2022 Mental Status None recorded. Family History Relationship Description Onset Age of this Age Resolved Age Notes LastModified by Organization Details LastModified Time Father No current problems or disability Not available 14:18:50 Mother No current problems or disability Not available 14:18:50 Medical History Condition Response Other Cancer N High Blood Pressure N Colon Cancer N Cytomegalovirus N Hyperthyroidism N MRSA N Blood Transfusion N Herpes (HSV) N Breast Cancer N Lung Cancer N Depression N Hypothyroidism N Incontinence N Panic Attacks N Neurological Disorder N Deep Vein Thrombosis N Anxiety Disorder N Autoimmune disease N Arthritis N Shingles N Tuberculosis/Positive PPD N Polycystic Ovarian Syndrome N Cervical Cancer N Chlamydia N Hematuria N Stroke N Varicosities N Seasonal allergies N Crohn's Disease N Alzheimer's/Dementia N COPD/Emphysema N Endometriosis N HPV/Genital Warts N IBS (Irritable Bowel Syndrome) N History of Abnormal Pap N High Cholesterol N Liver Disease N Kidney Infection N Fibromyalgia N Ulcer N Kidney Disease N HIV N Gallbladder disease N Von Willebrand disease N Sickle Cell Disease/Trait N ADD/ADHD N Eating Disorder N Diabetes Mellitus (non-insulin dependent ) N Anemia Y Ovarian Problems N Multiple Sclerosis N Gonorrhea N Frequent Urinary Tract infections N Osteopenia N Headaches/migraines N GERD (reflux) N Ovarian Cancer N Diabetes (insulin dependent) N Seizures/Epilepsy N Fibroids N Asthma N Heart Attack N Endometrial Cancer N Lupus N Rubella N Blood Clotting Disorder N Bipolar Disorder N Diabetes Mellitus (during ) N Ulcerative Colitis N Hepatitis N Heart Disease N Pulmonary Embolism N RPR N Chicken Pox N Osteoporosis N Gynecological History Statement/Question Response Flow Moderate Date of last HPV Date of LMP 09/27/2024 HPV Vaccine N Duration of Flow (days) 6 Most Recent Mammogram Current Control Method Age at Menarche 14 Date of Last Colonoscopy Most Recent Bone Density Date of Last Pap Smear 12/24/2022 Obstetrics History GPAL:G 3 P 2 0 1 2 Type Value Full Term 2 Spontaneous 1 Living 2 Total 3 Past Encounters Encounter ID Performer Location Encounter Start Date Encounter Closed Date Diagnosis/Indication Diagnosis SNOMED-CT Code Diagnosis ICD10 Code Diagnosis IMO Codes Diagnosis [facility] [id number] [facility] [address] [place] [address] 01/03/2022 14:11:29 01/03/2022 14:49:20 Screening for disorder 946377511 Z11.3 N89.9 Discussed the various types of STDs, related symptoms and the potential consequenc es (including effects on fertility) of STD infections . Reviewed ways to limit exposure and prevention techniques . Reviewed the various causes of vaginal problems. Reviewed good vulvar/vag inal hygiene and ways to reduce symptoms. Discussed boric acid around time of menses as this is when patient notes increase in symptoms. Advised to call if treatment is not helpful or if symptoms persist or recur. [id number] [facility] [address] [place] [address] 09/25/2022 09:43:42 09/25/2022 12:01:11 Venereal disease screening 888498518 Z11.3 [id number] [facility] [address] [place] [address] 12/24/2022 12:16:11 12/25/2022 09:46:15 Past history of miscarriage 473634861 Z87.59 Gynecologi c examination 72885901 Z01.419 Screening for malignant neoplasm of cervix 279136092 Z12.4 Contracept ion education 951177221 Z30.09 Contracept jennifer counseling : Discussed options including OCPs, NuvaRing, Nexplanon, hormonal and copper IUDs. Discussed risks, efficacy, noncontrac eptive benefits, and side effects of each option, including risk of VTE with hormonal contracept ion and uterine perforatio n, expulsion, infection with IUD. Depression screening 171 190287 Z13.31 Acute vaginitis 09770235 N76.0 [id number] ZINA [facility]STER [facility] [address] [place] [address] 04/16/2023 12:00:30 04/16/2023 15:52:40 test positive 896493738 Z32.01 Nausea 537247284 R11.0 Body mass index 30+ - obesity 960241526 Z68.34 [id number] PHUONG QUIROGA, [facility] [address] [place] [address] 05/14/2023 15:52:25 05/15/2023 13:45:05 Gestation period, 12 weeks 21720412 Z3A.12 Pt comes in today for a New/First OB visit.Gest ation: 12w 0dEDD: 11/26/2023 -- PMH: No PMH-- Medication s: Taking daily PNV, B6 and unisom- not helping as much. Will d/c and send reglan.-- Previous OB History: Vaginal- Baby was born in Group B.-- Mom/Sister s with hx of Pre-Eclamp kings: Denies-- History of Genital HSV: + blood work, but has never had an outbreak.- - Genetic Questions in OB Episode Done-- Accepts [employer]. Would like to know gender. Discussed logging on to the [employer] portal to find Gender Results-- PAP up to date --BMI at Confirmati on: 34.6-Re-ev aluate BMI at 32 weeks POC-- NOB labs done today-- Accepts UNITY-- PAP Up to Date-- Pre-Pregna ncy BMI: 34.6-- RTC 4 weeks Guide: Given and reviewed. Toxoplasmo sis precaution s reviewed. Reviewed office visit schedule during . Reviewed Quickening and normal FHTs. screening 2436 Z36.0 Carrier de tection, molecular genetics 2979417 Z14.8 Nausea 724788443 R11.0 Pt educated on smaller/mo re frequent meals, pushing p.o. water intake, and avoiding spicy/frie d foods. Rx for Reglan sent. Pt encouraged to notify HCP if no relief. Pt states understand ing of POC. Body mass index 30+ - obesity 492432610 Z68.34 [id number] AILYN WOODSON [facility] [address] [place] [address] 06/09/2023 16:41:20 06/09/2023 17:37:41 Gestation period, 15 weeks 2234191 Z3A.15 Pt is here for a WAQAS appointmen t. She is taking vitamins. She has no complaints or questions. Anatomy scan- Next visit Reports feeling movement. Denies vaginal bleeding, abdominal cramps, N/V, contractio ns, or LOF. Denies headache, vision changes, swelling of hands or face, and epigastric pain. Discussed PTL and precaution s given. There are no identifiab le risk factors for pre-term labor. Discussed with pt that I do not delivery babies. Recommende d pt see a Delivery Provider next visit. screening 2436 Z36.0 Infection screening 7 02792 Z11.9 [id number] Helen Limon CNM [facility] [address] [place] [address] 07/07/2023 15:00:13 07/07/2023 16:06:22 Gestation period, 19 weeks 27350748 Z3A.19 screening for malformation 970858318 Z36.3 Normal pre gnancy in multigravida 4364363456 28565 Z34.82 screening 2436 Z36.0 [id number] Helen Limon CNM [facility] [address] [place] [address] 08/05/2023 15:30:34 08/05/2023 16:50:51 Gestation period, 23 weeks 46605164 Z3A.23 Additional diagnosis detail: 23 weeks gestation of Normal 1861616 2 Z34.82 Additional diagnosis detail: Normal in multigravi da in second trimester Patient en counter status 650340440 Z36.3 Additional diagnosis detail: Encounter for screening for malformati ons Dizziness 634727439 R42 [id number] LEEANN DORMAN NP [facility] [address] [place] [address] 09/02/2023 09:43:48 09/02/2023 15:32:58 Normal 57930002 Z34.93 Pt is here for a WAQAS appointmen t. She is taking vitamins. She has no complaints or questions. Reports feeling movement. Is having loose stools multiple times throughout the day and has had this since beginning of . Denies vaginal bleeding, abdominal cramps, N/V, contractio ns, or LOF. Denies headache, vision changes, swelling of hands or face, and epigastric pain. Discussed PTL and precaution s given. There are no identifiab le risk factors for pre-term labor. Reminded pt that I do not delivery babies. - Has appt on 09/04 with MFM to get anatomy completed, not all views of heart were seen. Also, has a low lying placenta. RTC in 2 wks for all 3rd trimester labs. 32546407 Z33.1 Diabetes m ellitus screening 730764109 Z13.1 Gestation period, 27 weeks 24805662 Z3A.27 [id number] Meron Wellington is, CNM [facility] [address] [place] [address] 10/02/2023 13:57:07 10/02/2023 14:40:18 Normal 51973813 Z34.93 Additional diagnosis detail: Normal in third trimester screening 2437 16568 Z36.89 Gestation period, 32 weeks 7968992 Z3A.32 Additional diagnosis detail: 32 weeks gestation of [id number] Howie Andrade MD [facility] [address] [place] [address] 10/13/2023 10:23:20 10/13/2023 14:00:49 Normal 51440877 Z34.93 Additional diagnosis detail: Normal in third trimester Gestation period, 33 weeks 23778814 Z3A.33 Additional diagnosis detail: 33 weeks gestation [facility] [id number] [facility] [address] [place] [address] 10/28/2023 14:19:54 10/28/2023 15:36:33 Normal in multigravida 0903802417 21900 Z34.80 Z34.83 [id number] Additional diagnosis detail: Normal in third trimester Gestation period, 36 weeks 53363674 Z3A.36 [id number] Obese class II 839690892 1 96426 E66.9 [id number] [facility] [address] [place] [address] 11/06/2023 12:21:25 11/06/2023 13:32:13 Normal in multigravida 5801520624 69138 Z34.80 Z34.83 33913039 Denies vaginal bleeding, abdominal cramps, N/V, contractio ns, and LOF. Denies headache, vision changes, swelling of hands or face, or epigastric pain. Reports active movement. movement awareness discussed. Labor precaution s reviewed See pt instructio ns section as well Additional diagnosis detail: Normal in third trimester Obese class II 674227374 1 55770 E66.9 62440283 Gestation period, 37 weeks 89965588 Z3A.37 0090436 Herpes simplex 21250922 B00.9 63242 [id number] AILYN WOODSON [facility] [address] [place] [address] 12/15/2023 14:18:34 12/15/2023 17:00:30 Depression screening 687870938 Z13.31 EPDS: Pt educated on normal EPDS scoring, and discussed depression precaution s and when to notify HCP/go to ER. 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 Her course was uncomplica farrah. Denies pelvic pain or any signs of infection. Denies any acute concerns. Baby and Mom are doing good. Home life is going well. -- Delivery Date: --V aginal-Per iurethral abrasion-- Baby Blues & Depression discussed. Pt denies any feelings of depression , frequent crying, or feelings of harming self or others. Educated on the warning signs of depression and when to seek medical attention. -- PNV while at reproducti ve age for benefits in early . -- Continue light activity & can start light exercise such as walking.-- Discussed no vaginal penetratio n and no tampons until 6 weeks PP.-- Discussed benefits of waiting minimum 12-18 months between pregnancie s to reduce negative outcomes.- - Lochia: Still bleeding, starting to spot. No odor.-- Uterus: Involuted- - Bowl and Bladder: Reports no issues. Discussed fiber intake, staying hydrated, and stool softeners PRN.-- Perineum: Denies redness, edema, or discharge. Discussed Perineal care witch precious and dermoplast PRN.-- Hemorrhoid s: Denies. Discussed Witch Precious pads, hemorrhoid balm, and stool softener PRN.-- Breasts: Pt is breast feeding. Denies breast pain, warmth, or firmness. Encouraged continuing breastfeed ing. Counseled regarding benefits for mother and baby.-- Briefly reviewed contracept jennifer options & encouraged to consider preferred option for next visit.-- Safe Sleeping Instructio ns per AAP: STRONGLY ADVISED against cosleeping with infants. Infants should always sleep: on their backs, on firm surfaces, on clean surfaces, in the absence of (second hand) smoke, under light (comfortab le) blanketing , and their heads should never be covered. Avoid objects in the crib that could present hazard to infant.-- Pre-Eclamp kings S/S reviewed in detailed. Cautioned pt to be seen right away in office or at hospital if BURNS, visual changes (floaters, narrowing, and/or shortening of vision), RUQ/epigas tric pain). If checking BP's at home - target range reviewed - 150/90 go to hospital for evaluation .--Start thinking about contracept ion: Declines any contracept ion at this time. - RTO in 4 weeks for full physical exam [id number] Howie Andrade MD [facility] [address] [place] [address] 12/29/2023 10:04:49 12/29/2023 14:54:30 state 75195421 Z39.2 discussed breast feeding and control and minipill and also any progestero ne type and will switch to combinatio n pill after breast feedingwil l see in 10-12 months for yearly or sooner if neededalso discussed timing of second and waiting 15 months before attempting to get for medical reasons which were discussed with the patient . Depression screening 171 116731 Z13.31 See Screening Section for EPDS Questionna mary grace Result [id number] Howie Andrade MD [facility] [address] [place] [address] 11/26/2024 12:17:14 11/26/2024 15:11:45 Menstruation postponed 036273656 N91.0 [id number] By her last menstrual period her due date would be July 05 her ultrasound shows her single intrauteri ne with positive heart tones to be at 8 weeks and 4 days consistent with July 04 for her due date and we will keep her due date of July 05 and her ovaries are normal Hyperemesi s gravidarum 00341566 O21.0 23573 Health Concerns Section Related Observation LastModified by Organization Detai ls LastModified Time None Recorded Concern Status LastModified by Organization Details LastModified Time None Recorded Advance Directives Directive None Recorded Payers Insurance Date Sequence Insurance Name Policy Number Policy Davila Covered Member ID Davila Member ID Guarantor Name 02/01/2024 PAYMENT PLAN Jacqui Schroeder 11/26/2024 1 [employer] [place] [id number] Jacqui Schroeder [id number] Jacqui Alexandre 11/26/2024 1 [employer] [place] ON OR AFTER 2020 (MEDICAID REPLACEMENT - HMO) Jacqui Schroeder [id number] Jacqui Alexandre 11/26/2024 1 [employer] (HMO) [id number] Jacqui Schroeder [id number] Jacqui Schroeder 12/20/2024 1 [place] Jacqiu Louislan [id number] Jacqui Schroeder 11/26/2024 1 [place] [facility] Jacqui Schroeder [id number] Jacqui Schroeder 11/26/2024 1 [employer] [place] ON [place] AFTER 2020 (MEDICAID REPLACEMENT - HMO) Jacqui Louislan [id number] Jacqui Schroeder 11/26/2024 1 [facility] - DOS PRIOR TO 2024 (MEDICAID REPLACEMENT - HMO) Jacqui Louislan [id number] Jacqui Louislan Notes Date Note Type Note Provider Name and Address Organization Details Recorded Time 10/28/2023 text/html Jacqui 28 y/o here for routine OB visit, she is 35/6 weeks, denies any vaginal spotting,bleeding, fluid leakage c/o cramping, movement noted, taking vitamins, getting GBS today Althea Salas CNM [facility] [place], [address], [employer] [place] 10/28/2023 15:21:46 11/06/2023 text/html Jacqui is here today for a routine OB visit. She is currently at 37.1 weeks gestation. vitamins: yes She has felt movement. She denies any complaints of the presence of vaginal bleed, leaking fluid, abdominal cramps, nausea, vomiting, headache or visual disturbances. Althea Salas CNM [address] [place], [address], [employer] [place] 11/06/2023 13:21:41 12/15/2023 text/html ROS as noted in the HPI Pt presents for a 4 week visit. Pt is s/p on 11/18/23. Pt is breast feeding Pt is healing well and denies any pain or abnormal bleeding. Denies any signs of infection. Patient does have headaches but no blurred vision, RUQ pain or increase in swelling. Patient did have a laceration ( see delivery report). AILYN WOODSON [facility] [place], [address], [facility] [employer] IV 12/15/2023 14:47:59 12/29/2023 text/html VisitReported by PatientHPIFor onset/timing, patient reportsdate of delivery: (11-20-23). For quality, patient reportsnsvd. For context, patient reportspostpartum complications: none,feeding choice: breast and bottle, andgood support from partner/family. For associated symptoms, patient reportsno abnormal bleeding,no vaginal discharge,no pelvic pain,laceration well healed,no constipation,no fecal incontinence,no dysuria,no urinary incontinence,no fever,no problems,no mastitis, andnormal mood. The patient verbally consented to documentation via virtual scribe for this encounter. Jacqui is a 28-year-old female who presents today for visit. She had on 11-20-[address] Howie Andrade. She reports intermittent on and off vaginal bleeding. She is currently not on any control management. She had in 2017 without any history of GDM or PIH. Howie Andrade MD [address] [place] [address], [place], [address], [facility] [employer] IV 12/29/2023 14:14:29 11/26/2024 text/html ROS as noted in the HPI The patient verbally consented to documentation via virtual scribe for this encounter. Jacqui is a 29 year old female who is here for Confirmation. Her LMP was 09/27/2024. Pt stated that she had a positive test about 3 week. Howie Andrade MD [address] [place] [address], [address], [facility] [employer] 12/23/2024 16:24:17 OBGyn Episode Ob Episode Information Episode Created Date Number of Fetuses Patient Bloodtype Patient rh Status Prepregnancy Weight lbs Domestic Partner Domestic Partner Phone Father Name Nursing Informatics Analyst Status 12/15/19 24 1 CLOSED Fetus Data First Name Last Name Admitted to NICU Weight (g) Sex Living Outcome Pediatric Complications Fetus ID Race Codes Race Delivery Type , Spontane ous [id number] Escobar Calculation Initial Escobar Date Initial Exam Date Initial Exam Provider Initial Ultrasound Date Last Menstrual Period Date Ultra Sound Weeks Gestation 0 Eighteen To Twenty Week Escobar Update Ultra Sound Date Fundal Height At Umbil Quickening Date Ultra Sound Latest Weeks Gestation Final Escobar Confirmed By Final Escobar Confirmed Date Final Escobar Date Ultra Sound Latest Days Gestation 0 0 Menstrual History Last Menstrual Date Menses Monthly On Bcp Conception Prior Menses Frequency Hcg Plus Date Menarche Onset Age Delivery Information Delivery Date Delivery Type Labor Anesthesia Weeks Gestation Incision Type Labor Labor Length Hrs Delivered By Post Complications Tubal Sterilization Discharge Date Comments 3 Discharge Information Feeding Method Contraceptive Method Maternal HG B and HCT Levels Ob Episode Information Episode Created Date Number of Fetuses Patient Bloodtype Patient rh Status Prepregnancy Weight lbs Domestic Partner Domestic Partner Phone Father Name Nursing Informatics Analyst Status 09/26/19 23 1 CLOSED Fetus Data First Name Last Name Admitted to NICU Weight (g) Sex Living Outcome Pediatric Complications Fetus ID Race Codes Race Delivery Type 3430.06 [id number] F Full Term [id number] Escobar Calculation Initial Escobar Date Initial Exam Date Initial Exam Provider Initial Ultrasound Date Last Menstrual Period Date Ultra Sound Weeks Gestation 0 Eighteen To Twenty Week Escobar Update Ultra Sound Date Fundal Height At Umbil Quickening Date Ultra Sound Latest Weeks Gestation Final Escobar Confirmed By Final Escobar Confirmed Date Final Escobar Date Ultra Sound Latest Days Gestation 0 0 Menstrual History Last Menstrual Date Menses Monthly On Bcp Conception Prior Menses Frequency Hcg Plus Date Menarche Onset Age Delivery Information Delivery Date Delivery Type Labor Anesthesia Weeks Gestation Incision Type Labor Labor Length Hrs Delivered By Post Complications Tubal Sterilization Discharge Date Comments 7 false born wit h GBS Discharge Information Feeding Method Contraceptive Method Maternal HG B and HCT Levels Ob Episode Information Episode Created Date Number of Fetuses Patient Bloodtype Patient rh Status Prepregnancy Weight lbs Domestic Partner Domestic Partner Phone Father Name Nursing Informatics Analyst Status 05/14/19 24 1 O Positive CLOSED Fetus Data First Name Last Name Admitted to NICU Weight (g) Sex Living Outcome Pediatric Complications Fetus ID Race Codes Race Delivery Type false 3401.94 M true Full Term None [id number] Problems Problem Notes Problem Name Start Date End Date Resolution Snomed Code Not e Herpes simplex 85659987 Type 1 & 2 in blood work-never had outbreak Body mass index 30+ - obesity 998944206 Confirmation BM I: 34.2, 6-21-24 at [facility] had efw 43% and post plac no previa and growth at 34weeks w/[facility] Group B streptococcal pneumonia 277287592 1st child complications after delivery due to GBS. 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 Escobar Calculation Initial Escobar Date Initial Exam Date Initial Exam Provider Initial Ultrasound Date Last Menstrual Period Date Ultra Sound Weeks Gestation 11/26/2023 05/14/2023 0 Eighteen To Twenty Week Escobar Update Ultra Sound Date Fundal Height At Umbil Quickening Date Ultra Sound Latest Weeks Gestation Final Escobar Confirmed By Final Escobar Confirmed Date Final Escobar Date Ultra Sound Latest Days Gestation 0 0 Pre- Flowsheet Flowsheet Date 05/14/2023 Daily Score Blood Edema Fundus Height Fundus Units Glucose Ketones Leukocytes Nitrite Labor Signs Protein Cervic Dilation Cervic Effacement Cervic Station none none Type Weight in lbs Pre/Post Dialysis Refused With clothes 231.981997084627 BP Diastolic BP Location Tested BP Systolic BP Type 70 L arm 116 sitting Fetus Heart Rate Present A 158 Present Fetus Movement A No Comments 1st OB visit. NOB and unity collected. Hx complications with after delivery due to GBS. History of positive HSV in bloodwork has never had outbreak. Will do suppression therapy at 36 weeks. Patient states still dealing with nausea, B6 & Unisom not helping. Rx sent for Reglan. RTC in 4 weeks, will need AFP next visit. Flowsheet Date 06/09/2023 Daily Score Blood Edema Fundus Height Fundus Units Glucose Ketones Leukocytes Nitrite Labor Signs Protein Cervic Dilation Cervic Effacement Cervic Station none none Type Weight in lbs Pre/Post Dialysis Refused With clothes 234.644343163650 BP Diastolic BP Location Tested BP Systolic BP Type 76 L arm 120 sitting Fetus Heart Rate Present A 165 Present Fetus Movement A Yes Comments No OB complaints today. CT/N G and urine culture sent, not sent with NOB labs. Reviewed NOB labs with patient. RTC in 4 weeks, will need anatomy and will get AFP at next visit since not 16 weeks yet. Flowsheet Date 07/07/2023 Daily Score Blood Edema Fundus Height Fundus Units Glucose Ketones Leukocytes Nitrite Labor Signs Protein Cervic Dilation Cervic Effacement Cervic Station Type Weight in lbs Pre/Post Dialysis Refused Weight 243.405109532184 BP Diastolic BP Location Tested BP Systolic BP Type 68 126 Fetus Heart Rate Present A 159 Fetus Movement Comments Anatomy incomplete heart vie ws. Repeat next visit Discussed low lying placenta and strict precautions. Verbalizes understanding. MSFAP today. Flowsheet Date 08/05/2023 Daily Score Blood Edema Fundus Height Fundus Units Glucose Ketones Leukocytes Nitrite Labor Signs Protein Cervic Dilation Cervic Effacement Cervic Station Type Weight in lbs Pre/Post Dialysis Refused Weight 237.423252783138 BP Diastolic BP Location Tested BP Systolic BP Type 68 R arm 110 sitting Fetus Heart Rate Present A 162 Fetus Movement A Yes Comments Anatomy remains incomplete t enedelia. Will refer to MFM for completion of heart views. LLP persists 1.4cm from os. Reinforced precautions. CBC today for complains of dizzy episode while working. Encouraged to increase fluids, small frequent meals, change positions slowly, and avoid standing locked legged. PTL/PIH precautions reviewed. Flowsheet Date 09/02/2023 Daily Score Blood Edema Fundus Height Fundus Units Glucose Ketones Leukocytes Nitrite Labor Signs Protein Cervic Dilation Cervic Effacement Cervic Station none none none neg Type Weight in lbs Pre/Post Dialysis Refused With clothes 244.050677270557 BP Diastolic BP Location Tested BP Systolic BP Type 68 R arm 112 sitting Fetus Heart Rate Present A 139 Fetus Movement A Yes Comments 1hr Gtt drawn today per pt r equest. Will need all 3rd trimester labs at next visit. Monday 09/04 has appt with M to complete anatomy, not all views of heart seen. Also, has a low lying placenta. No OB complaints today. States she's having loose stools, but has had the entire . Flowsheet Date 10/02/2023 Daily Score Blood Edema Fundus Height Fundus Units Glucose Ketones Leukocytes Nitrite Labor Signs Protein Cervic Dilation Cervic Effacement Cervic Station 32 cm Type Weight in lbs Pre/Post Dialysis Refused With clothes 247.687773590080 BP Diastolic BP Location Tested BP Systolic BP Type 64 L arm 110 sitting Fetus Heart Rate Present A 140 Fetus Movement A Yes Comments 3T labs today GTT last week 112. 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 and she has a daughter w/optic issue and sees Childrens partner = Bulmaro and 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 F/u in 1 wk. labor precautions and movement reviewed in detail. Flowsheet Date 11/06/2023 Daily Score Blood Edema Fundus Height Fundus Units Glucose Ketones Leukocytes Nitrite Labor Signs Protein Cervic Dilation Cervic Effacement Cervic Station Type Weight in lbs Pre/Post Dialysis Refused With clothes 245.118675025564 BP Diastolic BP Location Tested BP Systolic BP Type 70 120 sitting Fetus Heart Rate Present A 125 Fetus Movement A Yes Comments NST reactive. IOL process re viewed in detail. HSV suppression w/valacyclovir. F/u in 1 wk Flowsheet Date 12/15/2023 Daily Score Blood Edema Fundus Height Fundus Units Glucose Ketones Leukocytes Nitrite Labor Signs Protein Cervic Dilation Cervic Effacement Cervic Station Type Weight in lbs Pre/Post Dialysis Refused With clothes 222.2780738925 BP Diastolic BP Location Tested BP Systolic BP Type 72 108 sitting Fetus Heart Rate Present Fetus Movement Comments Flowsheet Date 12/29/2023 Daily Score Blood Edema Fundus Height Fundus Units Glucose Ketones Leukocytes Nitrite Labor Signs Protein Cervic Dilation Cervic Effacement Cervic Station Type Weight in lbs Pre/Post Dialysis Refused Weight 226.155903563548 BP Diastolic BP Location Tested BP Systolic BP Type 60 112 Fetus Heart Rate Present Fetus Movement Comments Menstrual History Last Menstrual Date Menses Monthly On Bcp Conception Prior Menses Frequency Hcg Plus Date Menarche Onset Age Genetic Screening And Infection History Question Response Note Thalassemia (Slovenian, Liberian, Mediterranean, Or Background): MCV < 80 false Intellectual Disability/Autism false Personal or Family History of Congenital Heart D efect false History of Hepatitis false Muscular Dystrophy false Sickle Cell Disease Or Trait () false Patient Or Partner Has History Of Genital Herpes false Hemophilia Or Other Blood Disorders false Oscar Disease false Patient's Age Will Be 35 Yea rs Or Older At Estimated Date of Delivery false If Yes, Agent(s) And Strength/Dosage false Medications (including Suppl ements, Vitamins, Herbs, OTC Drugs), Illicit/Recreational Drugs, Alcohol false Other Structural Defect false Recent Travel History Outside of Country false Maternal Metabolic Disorder (eg, Type 1 Diabetes , PKU) false Tony-Sachs (eg, Christian, Cajun, [place]guillan-[place]) f alse Other Infection History false Floyd's Chorea false Cystic Fibrosis false Recurrent Loss, Or A Stillbirth false Rash Or Viral Illness Since Last Menstrual Perio d false Live With Someone With TB Or Exposed To TB false Mental Retardation/Autism false If Yes, Was Person Tested For Fragile X? false History of HIV false Any Other Genetic History false Hemoglobinopathy Or Carrier false Prior GBS-infected child true 1st pre g Down Syndrome false Other Inherited Genetic Or Chromosomal Disorder false Patient Or Baby's Father Had A Child With Defects Not Listed Above false Personal or Family History o f Neural Tube Defect (Meningomyelocele, Spina Bifida, Or Anencephaly) false History Of STD, Gonorrhea, Chlamydia, HPV, Syphi lis false Delivery Information Delivery Date Delivery Type Labor Anesthesia Weeks Gestation Incision Type Labor Labor Length Hrs Delivered By Post Complications Tubal Sterilization Discharge Date Comments Sponta neous [facility]-Ep idural 38.6 Howie Andrade MD None false 11/20/2023 Discharge Information Feeding Method Contraceptive Method Maternal HG B and HCT Levels Breast
--- OUTSIDE RECORDS SUMMARY | 2025-02-05 21:09 | XMS_ITS | Clinical Summary ---
Author Organization [facility] Address [address] [place] [address] Care Team Providers Care Personal Coach Name Role Phone Unavailable Primary Care Provider Unavailabl e Source Comments [facility],non-owned Affiliates and Associated Physician Practices is amultiple site organization consisting of ambulatory clinics and hospital sitesin [place], [place], [place] and [place]. This disclosure is being madepursuant to the Care Everywhere program and may not contain all information available regarding this patient. Last updated 17.[facility] Allergies Active Allergy Reactions Criticality Noted Date Comments Peanut-Derived Unknown 09/01/2023 Social History Tobacco Use Types Packs/Day Years Used Date Smoking Tobacco: Never Assessed Comments No Sex and Gender Information Value Date Recorded Sex Assigned at Not on file Legal Sex Female 2:01 PM CDT Gender Identity Not on file Sexual Orientation Not on file Plan of Treatment Health Maintenance Due Date Last Done Comments HIV SCREENING 10/23/2011 HEPATITIS C SCREENING 10/18/2014 DTAP/TDAP/TD VACCINES (1 - Tdap) 10/23/2015 HEPATITIS B VACCINE (1 of 3 - 19+ 3-dose series) 10/23/2015 PAP SMEAR 2017 HPV VACCINE (1 - 3-dose SCDM series) 10/23/2023 DEPRESSION SCREENING 03/17/2024 COVID-19 VACCINE (1 - 2024-2 6 season) 2024 INFLUENZA VACCINE (#1) 2024 01/30/2017 ZOSTER VACCINE (1 of 2) 2046 HIB VACCINE Aged Out No longer eligi ble based on patient's age to complete this topic MENINGOCOCCAL (Group B) VACC INE SHARED DECISION-MAKING Aged Out No longer eligibl e based on patient's age to complete this topic MENINGOCOCCAL GROUPS A/C/Y/W VACCINE Aged Out No longer eligible b ased on patient's age to complete this topic PNEUMOCOCCAL VACCINE Aged Out No long er eligible based on patient's age to complete this topic Insurance COUNT INCLUDES THE [facility] MEDICAID - [place]
--- NOTE | 2025-02-05 21:17 | ECG_ITS ---
Test Date: 2025-02-05 21:26:41 Measurements Intervals [place] Rate: 72 P: 28 [place]: 152 QRS: 17 QRSD: 99 T: 26 QT: 391 QTc: 429 Interpretive Statements SINUS RHYTHM No previous ECG available for comparison Electronically Signed On 02-05-2025 22:57:00 [facility]ER by Sin Arboleda M.D.
[2025-02-05 21:27] LABS: Hematocrit 38.4 % (37.0-47.0); Hemoglobin 12.5 g/dL (12.0-15.0); Mean Corpuscular HGB Conc 32.6 g/dl (32-36); Mean Corpuscular Hemoglobin 28.2 pg (26-34); Mean Corpuscular Volume 86.5 fl (80-100); Platelet Count Result 216 k/mm3 (150-375); Red Blood Count 4.44 M/mm3 (4.2-5.4); White Blood Count 5.9 K/mm3 (4.5-10.0)
[2025-02-05 21:41] LABS: Alanine Aminotransferase 13 U/L (6-35); Albumin Level 4.3 g/dL (3.5-5.1); Alkaline Phosphatase 60 U/L (38-126); Anion Gap 11 mmol/L (4-12); Aspartate Amino Transferase 23 U/L (14-36); Bilirubin,Total 0.2 mg/dL (0.2-1.3); Blood Urea Nitrogen 18 mg/dL (7-17); Calcium 9.4 mg/dL (8.4-10.2); Carbon Dioxide 23 mmol/L (22-30); Chloride 102 mmol/L (98-107); Estimated CRCL calculation 107 ml/min; Estimated Glomerular Filt Rate > 60; Glucose 125 mg/dL (65-110); Potassium 3.9 mmol/L (3.4-5.0); Sodium 136 mmol/L (137-145); Total Protein 7.3 g/dL (6.3-8.2)
[2025-02-05 21:53] LABS: Basophils Absolute Manual 0.05 K/mm3 (0.0-0.1); Basophils Percent Manual 1 % (0-1); Lymphocytes Absolute Manual 2.95 K/mm3 (1.1-4.5); Lymphocytes Percent Manual 50.0 % (18-44); Monocytes Absolute Manual 0.29 K/mm3 (0.1-0.90); Monocytes Percent Manual 5 % (3-9); Neutrophils Percent Manual 44 % (46-73); Total Cells Counted 100
[2025-02-05 21:54] LABS: Band Neutrophils Percent 0 % (0-6); Neutrophils Absolute Manual 2.59 K/mm3 (1.3-6.7); Schistocytes None Seen; Smudge Cells FEW
--- OUTSIDE RECORDS SUMMARY | 2025-02-05 22:17 | XMS_ITS | Clinical Summary ---
Author Organization [facility] Address [address] [place] [address] Care Team Providers Care Director Digital Communications Name Role Phone Unavailable Primary Care Provider Unavailabl e Source Comments [facility],non-owned Affiliates and Associated Physician Practices is amultiple site organization consisting of ambulatory clinics and hospital sitesin [place], [place], [place] and [place]. This disclosure is being madepursuant to the Care Everywhere program and may not contain all information available regarding this patient. Last updated 17.[facility] Allergies Active Allergy Reactions Criticality Noted Date [...] patient's age to complete this topic Insurance [facility] MEDICAID - [place]
--- NOTE | 2025-02-05 23:44 | ED_ITS ---
HPI - Allergic Reaction General Chief complaint: Shortness of Breath/Dyspnea Stated complaint: sob/itchy Time Seen by Provider: 02/05/25 21:56 History of Present Illness HPI narrative: 29-year-old female with no pertinent past medical history presenting to the emergency department after having a potential allergic reaction to something. Patient states that she started feeling very itchy and had some trouble breathing and felt flushed and had redness in her face. Symptoms resolved after she took Benadryl at home. Came to the ER as she has not had some of this happened or previously. She did get a new dog 2 days ago and thinks this could be the potential source as she has no other potential exposures at home. No new laundry detergents or bedding. No new clothing Or products. No new foods. Did not have any eat prior to the symptom onset. Symptoms are fully resolved at this time and she feels better. No history of anaphylaxis. Did not take anything besides some children Benadryl at home. Related Data Allergies Allergy/AdvReac Type Severity Reaction Status Date / Time peanut Allergy Hives Verified 02/05/25 21:08 Review of Systems 2 Review of Systems: As reviewed above in HPI Exam 2 Narrative: GENERAL: [Well-appearing, well-nourished, and in no acute distress.] HEAD: [Normocephalic, atraumatic.] EYES: [PERRLA and EOMI.] ENT: Nares clear, no rhinorrhea or epistaxis. Mucous membranes moist. NECK: Supple. CHEST: [Clear to auscultation. No respiratory distress.] HEART: [Regular rate and rhythm]. No murmur heard. [Normal peripheral pulses.] ABDOMEN: [Soft, nondistended], [nontender], [No rigidity or guarding] EXTREMITIES: Normal range of motion. [No edema.] SKIN: Warm, dry, no rash. NEURO: [No focal deficits]. Alert and oriented [x3.] PSYCH: [Normal mood and affect.] Course Vital Signs Vital signs: Vital Signs Temperature 36.7 C 02/05/25 21:10 Pulse Rate 88 02/05/25 21:10 Respiratory Rate 20 02/05/25 21:10 Blood Pressure 125/105 H 02/05/25 21:10 Pulse Oximetry 98 02/05/25 21:10 Oxygen Delivery Room Air 02/05/25 21:10 Temperature 36.7 C 02/05/25 21:10 Pulse Rate 79 02/05/25 22:02 Respiratory Rate 16 02/05/25 22:02 Blood Pressure 123/70 02/05/25 22:31 Pulse Oximetry 100 02/05/25 22:31 Oxygen Delivery Room Air 02/05/25 21:30 MDM - Allergic Reaction MDM Narrative Medical decision making narrative: 29-year-old female with no pertinent past medical history presenting to the emergency department after having a potential allergic reaction to something. Patient states that she started feeling very itchy and had some trouble breathing and felt flushed and had redness in her face. Symptoms resolved after she took Benadryl at home. Came to the ER as she has not had some of this happened or previously. She did get a new dog 2 days ago and thinks this could be the potential source as she has no other potential exposures at home. No new laundry detergents or bedding. No new clothing Or products. No new foods. Did not have any eat prior to the symptom onset. Symptoms are fully resolved at this time and she feels better. No history of anaphylaxis. Did not take anything besides some children Benadryl at home. Patient is overall well-appearing and lacking any symptoms at this time. She has normal vital signs. No tachycardia, fever, hypoxemia or blood pressure concerns. Afebrile. No signs of allergy reaction on exam. No urticaria or rash. No throat closing, shortness of breath or any other symptoms. Workup was obtained in triage including blood assessments and chest x-ray which were all reviewed and unremarkable. Given patient's lack of symptoms and observation. Here in the ED without any new complaints or any developing concerns she is safe for discharge home at this time with strict return precautions and instructions for care of simple allergic reactions at home. Medical Records Attestation: I reviewed the patient's medical records. Lab Data Attestation: I reviewed the patient's lab results. 02/05/25 21:22 02/05/25 21:22 Labs: Lab Results 02/05/25 Range/Units 21: WBC 5.9 (4.5-10.0) K/mm3 RBC 4.44 (4.2-5.4) M/mm3 Hgb 12.5 (12.0-15.0) g/dL Hct 38.4 (37.0-47.0) % MCV 86.5 (80-100) fl MCH 28.2 (26-34) pg MCHC 32.6 (32-36) g/dl RDW 13.8 (11.5-14.5) % Plt Count 216 (150-375) k/mm3 MPV 11.8 H (7.4-10.4) fl Immature Gran % (Auto) Not Reportable Neut % (Auto) Not Reportable Lymph % (Auto) Not Reportable [place] % (Auto) Not Reportable Eos % (Auto) Not Reportable Baso % (Auto) Not Reportable Lymph # (Auto) Not Reportable [place] # (Auto) Not Reportable Eos # (Auto) Not Reportable Baso # (Auto) Not Reportable Abs Immat Gran (auto) Not Reportable Absolute Neuts (auto) Not Reportable Absolute Nucleated RBC Not Reportable Total Counted 100 Neutrophils % (Manual) 44 L (46-73) % Band Neutrophils % 0 (0-6) % Lymphocytes % (Manual) 50.0 H (18-44) % Monocytes % (Manual) 5 (3-9) % Basophils % (Manual) 1 (0-1) % Nucleated RBC % Not Reportable Abs Neuts (Manual) 2.59 (1.3-6.7) K/mm3 Abs Lymphs (Manual) 2.95 (1.1-4.5) K/mm3 Abs Monocytes (Manual) 0.29 (0.1-0.90) K/mm3 Abs Basophils (Manual) 0.05 (0.0-0.1) K/mm3 Smudge Cells Few Platelet Estimate Adequate (Adequate) Large Platelets Present Schistocytes None seen Sodium 136 L (137-145) mmol/L Potassium 3.9 (3.4-5.0) mmol/L Chloride 102 (98-107) mmol/L Carbon Dioxide 23 (22-30) mmol/L Anion Gap 11 (4-12) mmol/L BUN 18 H (7-17) mg/dL Creatinine 0.86 (0.7-1.0) mg/dL Estim Creat Clear Calc 107 ml/min Estimated GFR > 60 (59 - ) Glucose 125 H (65-110) mg/dL Calcium 9.4 (8.4-10.2) mg/dL Total Bilirubin 0.2 (0.2-1.3) mg/dL AST 23 (14-36) U/L ALT 13 (6-35) U/L Alkaline Phosphatase 60 (38-126) U/L Total Protein 7.3 (6.3-8.2) g/dL Albumin 4.3 (3.5-5.1) g/dL Discharge Plan Discharge Clinical Impression: Allergic reaction Patient Disposition: Home Condition: Stable Instructions: Antibiotic Form, Allergies (ED) Additional Instructions: symptoms consistent with an allergic reaction and release of widespread histamine. Symptoms got better with antihistamines including Benadryl. No urgent or emergent concerns identified today and all of your workup in imaging / vitals were normal. If you have any recurrent severe symptoms make note of what potential exposures there are such as the new PET you have in the house all her other potential causes such as chemical exposure. Take 50 mg of Benadryl for itchy rash or histamine symptoms and if worsening or having difficulty breathing, throat closing or facial swelling or any other concerns please return to the ER. Patient Language: Albanian Follow-up/Referrals: UNKNOWN,DOCTOR [Primary Care Provider] Stand Alone Forms: Work/School Release IP Time of Disposition: 22:55
== END 2025-02-05 23:04 | disposition home or self-care (01) ==
PROVIDERS: Emergency Provider Student in an Organized Health Care Education/Training Program
DX: T78.40XA Allergy, unspecified, initial encounter (principal); X58.XXXA Exposure to other specified factors, initial encounter
CPT/HCPCS: 36415; 71045; 80053; 85025; 93005; 99283